=== PATIENT | male | born 1975 | race Caucasian/White ===

== ENCOUNTER 2017-10-11 11:17 | Emergency (ER) | payer BC ==
--- NOTE | 2017-10-11 12:13 | Emergency Department Record ---
History of Present Illness - General Chief complaint: Extremity Problem Stated complaint: SHOULDER INJURY Time Seen by Provider: 10/11/17 11:22 Source: Patient Mode of Arrival: Ambulatory Limitations: No limitations - History of Present Illness Initial comments: pt injured l clavicle wrestling Complaint: Joint pain Onset/Timin -: Days(s) Location: Left, Shoulder Severity scale (1-10): 3 Quality: Aching, Sharp Consistency: Constant Improves with: Immobilization Worsens with: Other Associated Symptoms: Denies other symptoms - Related Data Previous Rx's Medication Instructions Recorded Hydrocodone/Acetaminophen [[place] 1 each PO QID #7 tablet 10/11/17 5-325 Tablet] Allergies Allergy/AdvReac Type Severity Reaction Status Date / Time No Known Drug Allergies Allergy Verified 10/11/17 11:24 Travel Screening - Travel/Exposure Within Last 30 Days Have you traveled within the last 30 days?: No - Travel/Exposure Within Last Year Have you traveled outside the [place] in the last year?: No - Additonal Travel Details Have you been exposed to anyone with a communicable illness?: No - Travel Symptoms Symptom Screening: None Review of Systems Reviewed: No additional complaints except as noted below Constitutional: Reports: As per HPI. Denies: Chills, Fever, Malaise, Night sweats, Weakness, Weight change Eyes: Reports: As per HPI. Denies: Eye discharge, Eye pain, Photophobia, Vision change ENT: Reports: As per HPI. Denies: Congestion, Dental pain, Ear pain, Epistaxis , Hearing loss, Throat pain Respiratory: Reports: As per HPI. Denies: Cough, Dyspnea, Hemoptysis, Stridor, Wheezes Cardiovascular: Reports: As per HPI. Denies: Arrhythmia, Chest pain, Dyspnea on exertion, Edema, Murmurs, Orthopnea, Palpitations, Paroxysmal nocturnal dyspnea, Rheumatic Fever, Syncope Endocrine: Reports: As per HPI. Denies: Fatigue, Heat or cold intolerance, Polydipsia, Polyuria Gastrointestinal: Reports: As per HPI. Denies: Abdominal pain, Constipation, Diarrhea, Hematemesis, Hematochezia, Melena, Nausea, Vomiting Genitourinary: Reports: As per HPI. Denies: Dysuria, Frequency, Hematuria, Incontinence, Retention, Testicular pain, Testicular mass, Urgency Musculoskeletal: Reports: As per HPI. Denies: Arthralgia, Back pain, Gout, Joint swelling, Myalgia, Neck pain Skin: Reports: As per HPI. Denies: Bruising, Change in color, Change in hair/ nails, Lesions, Pruritus, Rash Neurological: Reports: As per HPI. Denies: Abnormal gait, Confusion, Headache, Numbness, Paresthesias, Seizure, Tingling, Tremors, Vertigo, Weakness Psychiatric: Reports: As per HPI. Denies: Anxiety, Auditory hallucinations, Depression, Homicidal thoughts, Suicidal thoughts, Visual hallucinations Hematological/Lymphatic: Reports: As per HPI. Denies: Anemia, Blood Clots, Easy bleeding, Easy bruising, Swollen glands Past Medical History - SOCIAL HISTORY Smoking Status: Never smoker Alcohol Use: Occasional Drug Use: None - RESPIRATORY Hx Respiratory Disorders: No - CARDIOVASCULAR Hx Cardio Disorders: No - NEURO Hx Neuro Disorders: No - GI Hx GI Disorders: No - Hx Genitourinary Disorders: No - ENDOCRINE Hx Endocrine Disorders: No - MUSCULOSKELETAL Hx Musculoskeletal Disorders: No - PSYCH Hx Psych Problems: No - HEMATOLOGY/ONCOLOGY Hx Hematology/Oncology Disorders: No Family Medical History Any Significant Family History?: No Physical Exam - General General Appearance: Alert, Oriented x3, Cooperative, Mild distress - Head Head exam: Normal inspection - Eye Eye exam: Normal appearance, PERRL, EOMI Pupils: Normal accommodation - ENT ENT exam: Normal exam, Mucous membranes moist, Normal external ear exam, Normal orophraynx Ear exam: Normal external inspection. negative: External canal tenderness Nasal Exam: Normal inspection. negative: Discharge, Sinus tenderness Mouth exam: Normal external inspection, Tongue normal Teeth exam: Normal inspection. negative: Dental caries Throat exam: Normal inspection. negative: Tonsillar erythema, Tonsillar exudate - Neck Neck exam: Normal inspection, Full ROM. negative: Tenderness - Respiratory Respiratory exam: Normal lung sounds bilaterally. negative: Respiratory distress - Cardiovascular Cardiovascular Exam: Regular rate, Normal rhythm, Normal heart sounds - GI/Abdominal GI/Abdominal exam: Soft, Normal bowel sounds. negative: Tenderness - Rectal Rectal exam: Deferred - exam: Deferred - Extremities Extremities exam: Normal inspection, Full ROM, Normal capillary refill, Tenderness - Back Back exam: Reports: Normal inspection, Full ROM. Denies: Muscle spasm, Rash noted, Tenderness Image of Body Front/Back: 1 - tender over sternoclavicular joint - Neurological Neurological exam: Alert, CN II-XII intact, Normal gait, Oriented X3 - Psychiatric Psychiatric exam: Normal affect, Normal mood - Skin Skin exam: Dry, Intact, Normal color, Warm Course Vital Signs 10/11/17 11:20 Temperature 97.9 F Pulse Rate 85 Respiratory 18 Rate Blood Pressure 143/93 Pulse Ox 97 Disposition Disposition: Discharge Clinical Impression: Sternoclavicular (joint) (ligament) sprain Qualifiers: Encounter type: initial encounter Laterality: left Qualified Code(s): S43.62XA - Sprain of left sternoclavicular joint, initial encounter Disposition: Home, Self-Care Condition: (1) Good Instructions: Muscle Strain (ED) Additional Instructions: follow up with family doctor. return sooner if worse. ice to sore area Prescriptions: Hydrocodone/Acetaminophen [[place] 5-325 Tablet] 1 each PO QID #7 tablet Quality - Quality Measures Quality Measures: N/A - Blood Pressure Screening Does Patient Have Any of the Following: No Blood Pressure Classification: Hypertensive Reading Systolic Measurement: 143 Diastolic Measurement: 93 Screening for High Blood Pressure: < First Hypertensive BP, F/U Documented > [ [id number]] First Hypertensive Follow-up Interventions: Follow-up with rescreen GT 1 day and LT 4 weeks.
--- NOTE | 2017-10-12 08:13 | RADIOLOGY REPORT ---
EXAM: CHEST, TWO VIEWS HISTORY: CHEST PAIN POST WRESTLING INJURY. TECHNIQUE: Upright PA and lateral views of the chest were obtained. Comparison: Same day radiographic examination of the left clavicle. FINDINGS: The cardiomediastinal silhouette is normal in size and configuration. The pulmonary vasculature is nondilated. The lungs and pleural spaces are grossly clear. No displaced osseous fracture visualized. IMPRESSION: NO RADIOGRAPHIC EVIDENCE OF ACUTE CARDIOPULMONARY DISEASE. JOB NUMBER: [id number] [facility]
--- NOTE | 2017-10-12 08:15 | RADIOLOGY REPORT ---
EXAM: LEFT CLAVICLE, TWO VIEWS HISTORY: LEFT CLAVICLE PAIN POST INJURY. TECHNIQUE: Two views of the left clavicle were obtained. Comparison: Same day two views of the chest. Encounter: Initial. FINDINGS: There is a normal bone mineralization. No fracture, dislocation, or destructive bone lesion is seen. The articular relations are maintained. No focal soft tissue abnormality. IMPRESSION: NO ACUTE FRACTURE NOR DISLOCATION IDENTIFIED. [facility]: [id number] [facility]
== END 2017-10-11 12:27 | disposition home or self-care (01) ==
LOC: ER 11:17
DX: S43.62XA Sprain of left sternoclavicular joint, initial encounter (principal); R07.9 Chest pain, unspecified; Y93.83 Activity, rough housing and horseplay
CPT/HCPCS: 71046; 99283